=== PATIENT | female | born 2000 | race Caucasian/White ===

== ENCOUNTER 2022-02-02 04:57 | Emergency (ER) | payer MEDICAID ==
[2022-02-02] MEDS ORDERED: Sulfamethoxazole/Trimethoprim 800-160 MG Tab PO ONE (05:23)
[2022-02-02] MEDS ORDERED: Phenazopyridine 95 MG Tab PO STA (05:24)
== END 2022-02-02 05:30 | disposition home or self-care (01) ==
LOC: VM.ED 04:57
DX: N39.0 Urinary tract infection, site not specified (principal)
CPT/HCPCS: 81001; 87086; 87088; 87186; 99283; A9270-GY